=== PATIENT | male | born 1995 | race Caucasian/White ===

== ENCOUNTER 2017-04-29 01:20 | Emergency (ER) | payer SELFPAY ==
[~2017-04-29] VITALS: Ht 167.6 cm; Wt 76.5 kg
[2017-04-29 01:22] VITALS: Ht 167.6 cm; Wt 76.5 kg
== END 2017-04-29 01:49 | disposition left against medical advice (07) ==
LOC: E/R 01:20
DX: Z53.21 Procedure and treatment not carried out due to patient leaving prior to being seen by health care provider (principal)